=== PATIENT | female | born 1970 | race Caucasian/White ===

== ENCOUNTER 2017-01-21 09:50 | Emergency (ER) | payer MEDICAID ==
[2017-01-21 10:26] LABS: APPEARANCE,URINE CLEAR; BILIRUBIN,URINE NEGATIVE (NEGATIVE); GLUCOSE, URINE NEGATIVE (NEGATIVE); KETONES,URINE NEGATIVE (NEGATIVE); LEUKOCYTE ESTERASE,URINE NEGATIVE (NEGATIVE); NITRITE,URINE NEGATIVE (NEGATIVE); PROTEIN,URINE NEGATIVE (NEGATIVE); URINE SPECIFIC GRAVITY 1.006; UROBILINOGEN,URINE NEGATIVE mg/dL (<2.0)
--- NOTE | 2017-01-21 11:09 | ER Document Report ---
ED General - General Chief Complaint: Sore Throat Stated Complaint: URINARY SYMPTOMS Time Seen by Provider: 01/21/17 10:01 Mode of Arrival: Ambulatory Information source: Patient Notes: 36-year-old female presents to ED for urinary frequency burning urgency for the last 5 days. She states she also has a sore throat for the last 6 weeks. She states she has been drinking a lot of cranberry juice but the urgency and frequency continues. She has had a hysterectomy and a bilateral tubal ligation. TRAVEL OUTSIDE OF THE [place] IN LAST 30 DAYS: No - HPI Onset: Other - Urinary symptoms for 5 days sore throat for 6 week Onset/Duration: Gradual Quality of pain: Burning, Other - Throat Severity: Mild Pain Level: 2 Associated symptoms: Sore throat, Other - Urinary urgency frequency and burning Exacerbated by: Food Relieved by: Denies Similar symptoms previously: Yes Recently seen / treated by doctor: No - Related Data Allergies/Adverse Reactions: amoxicillin Allergy (Verified 01/21/17 09:54) azithromycin [From Zithromax] Allergy (Verified 01/21/17 09:54) cephalexin [From Keflex] Allergy (Verified 01/21/17 09:54) clindamycin Allergy (Verified 01/21/17 09:54) levofloxacin [From Levaquin] Allergy (Verified 01/21/17 09:54) Past Medical History - General Information source: Patient - Social History Smoking Status: Current Every Day Smoker Cigarette use (# per day): Yes - ppd Chew tobacco use (# tins/day): No Smoking Education Provided: Yes - Less than 2 minute Frequency of alcohol use: Heavy - qod Drug Abuse: None Lives with: Family Family History: Arthritis, CAD, CVA, DM, Thyroid Disfunction Patient has suicidal ideation: No Patient has homicidal ideation: No - Past Medical History Cardiac Medical History: Reports: Hx Hypertension Pulmonary Medical History: Reports: Hx COPD EENT Medical History: Reports: None Neurological Medical History: Reports: None Endocrine Medical History: Reports: Hx Hypothyroidism Renal/ Medical History: Reports: None Malignancy Medical History: Reports: None GI Medical History: Reports: None Musculoskeltal Medical History: Reports None Skin Medical History: Reports None Psychiatric Medical History: Reports: None Traumatic Medical History: Reports: None Infectious Medical History: Reports: None Past Surgical History: Reports: Hx Hysterectomy, Hx Myringotomy, Hx Tubal Ligation Review of Systems - Review of Systems Constitutional: No symptoms reported EENT: Nose discharge, Throat pain Cardiovascular: No symptoms reported Respiratory: No symptoms reported Gastrointestinal: No symptoms reported Genitourinary: Burning, Frequency, Urgency Female Genitourinary: No symptoms reported Musculoskeletal: No symptoms reported Skin: No symptoms reported Hematologic/Lymphatic: No symptoms reported Neurological/Psychological: No symptoms reported -: Yes All other systems reviewed and negative Physical Exam - Vital signs Vitals: Temp Pulse Resp BP Pulse Ox 98.7 F 121 H 16 197/107 H 99 01/21/17 09:55 01/21/17 09:55 01/21/17 09:55 01/21/17 09:55 01/21/17 09:55 Interpretation: Normal - General General appearance: Appears well, Alert - HEENT Head: Normocephalic, Atraumatic Eyes: Normal Pupils: PERRL Ears: Normal External canal: Normal Tympanic membrane: Normal Sinus: Normal Nasal: Swelling, Clear rhinorrhea Mouth/Lips: Normal Mucous membranes: Normal Pharynx: Post nasal drainage. No: Erythema, Exudate, Tonsillar hypertrophy Neck: Normal - Respiratory Respiratory status: No respiratory distress Chest status: Nontender Breath sounds: Normal Chest palpation: Normal - Cardiovascular Rhythm: Regular Heart sounds: Normal auscultation Murmur: No - Abdominal Inspection: Normal Distension: No distension Bowel sounds: Normal Tenderness: Nontender Organomegaly: No organomegaly - Back Back: Normal, Nontender - Extremities General upper extremity: Normal inspection, Nontender, Normal color, Normal ROM , Normal temperature General lower extremity: Normal inspection, Nontender, Normal color, Normal ROM , Normal temperature, Normal weight bearing. No: Judi's sign - Neurological Neuro grossly intact: Yes Cognition: Normal Orientation: AAOx4 Marija Coma Scale Eye Opening: Spontaneous Marija Coma Scale Verbal: Oriented [place] Coma Scale Motor: Obeys Commands [place] Coma Scale Total: 15 Speech: Normal Motor strength normal: LUE, RUE, LLE, RLE Sensory: Normal - Psychological Associated symptoms: Normal affect, Normal mood - Skin Skin Temperature: Warm Skin Moisture: Dry Skin Color: Normal Course - Vital Signs Vital signs: Temp Pulse Resp BP Pulse Ox 98.5 F 76 16 157/89 H 98 01/21/17 11:08 01/21/17 11:08 01/21/17 09:55 01/21/17 11:08 01/21/17 11:08 Discharge - Discharge Clinical Impression: Dysuria, Viral sore throat Condition: Stable Disposition: HOME, SELF-CARE Instructions: Family Physicians / Practices Additional Instructions: SORE THROAT: Sore throats may be caused by viruses, bacteria, or fungi. Most are due to a virus, and must get better on their own. Bacterial sore throats, particularly those due to "strep," need treatment with antibiotics. If an antibiotic is prescribed, be sure to take the medication for a full 10 days. Failure to take the antibiotic can result in complications such as rheumatic fever. Sometimes, an injection of antibiotics is given instead of pills or liquid. This single "shot" is equal in effectiveness to the oral medication. To relieve symptoms, take acetaminophen for pain. Sip clear liquids frequently, or eat popsicles or ice chips. Anesthetic sprays or lozenges may help. Make sure the air in the room is not too dry. Avoid using decongestants or antihistamines. Call the doctor if there is no improvement in two days, or if you have difficulty breathing, increasing throat pain, high fever, rash, or frequent vomiting. You have complained of frequency urgency and burning with urine, but your urine is negative for any kind of infection protein or sugar. Please reduce the amount of cranberry juice you are taking and increase your water intake. COUGH-SUPPRESSANT & EXPECTORANT MEDICATION: You are to use a cough medication as needed for relief of symptoms. This medicine is a combination of an expectorant (to make the mucous thinner and more easily "coughed up") and a cough suppressant (to reduce the frequency of coughing). The cough-suppressant medicine is related to narcotics. You may experience mild nausea and sleepiness. Some patients who are very sensitive to narcotics may have stomach pain from this medicine. Taking the medicine with food reduces these side effects. Do not drive or work with machinery until you know how this medicine affects you. The expectorant should have no side effects. Iodine-containing expectorants (such as organidin) should not be taken by persons with active thyroid disease unless approved by your doctor. Call the doctor if you develop shortness of breath, hives, rash, itching, lightheadedness, or severe nausea and vomiting. USE OF ACETAMINOPHEN (Tylenol): Acetaminophen may be taken for pain relief or fever control. It's much safer than aspirin, offering a wider range of "safe" dosages. It is safe during . Some brand names are Tylenol, Panadol, Datril, Anacin 3, Tempra, and Liquiprin. Acetaminophen can be repeated every four hours. The following are maximum recommended dosages: >89 pounds or adults 650 mg to 900 mg Acetaminophen can be repeated every four hours. Maximum dose not to exceed 4000 mg a day. SMOKING: If you smoke, you should stop smoking. The tar and chemicals in cigarette smoke are harmful. Smoking has been shown to cause: emphysema chronic bronchitis lung cancer mouth and throat cancer stomach and pancreas cancer premature aging defects In addition, smoking increases ear and lung infections in children of smokers. FOLLOW-UP CARE: If you have been referred to a physician for follow-up care, call the physician s office for an appointment as you were instructed or within the next two days. If you experience worsening or a significant change in your symptoms, notify the physician immediately or return to the Emergency Department at any time for re-evaluation. Forms: Elevated Blood Pressure, Smoking Cessation Education Referrals: LOCALMD,NO [Primary Care Provider] - Follow up as needed
[2017-01-21 11:10] VITALS: BP 157/89
== END 2017-01-21 11:29 | disposition home or self-care (01) ==
LOC: ER 09:50
DX: J02.8 Acute pharyngitis due to other specified organisms (principal); B97.89 Other viral agents as the cause of diseases classified elsewhere; R35.0 Frequency of micturition; J34.89 Other specified disorders of nose and nasal sinuses; R30.0 Dysuria; R39.15 Urgency of urination; I10 Essential (primary) hypertension; J44.9 Chronic obstructive pulmonary disease, unspecified; R09.82 Postnasal drip; F17.210 Nicotine dependence, cigarettes, uncomplicated; Z71.6 Tobacco abuse counseling; Z95.1 Presence of aortocoronary bypass graft; Z90.710 Acquired absence of both cervix and uterus; Z88.0 Allergy status to penicillin; Z88.1 Allergy status to other antibiotic agents
CPT/HCPCS: 81001; 87070; 87086; 87880; 99283

== ENCOUNTER 2019-07-04 16:47 | Observation (INO) | payer OTHER ==
[2019-07-04] MEDS ORDERED: LIDOCAINE 2% VISCOUS SOLN 15 ML UDCUP PO ONE (17:07)
[2019-07-04] MEDS ORDERED: ONDANSETRON 4 MG TAB.RAPDIS PO ONE (17:07)
[2019-07-04] MEDS ORDERED: MAG HYDROX/AL HYDROX/SIMETH SUSP 30 ML UDCUP PO ONE (17:07)
--- NOTE | 2019-07-04 17:08 | ER Document Report ---
ED Medical Screen (RME) - General Chief Complaint: Abdominal Pain Stated Complaint: ABDOMINAL PAIN/SWELLING Time Seen by Provider: 07/04/19 17:01 Primary Care Provider: WILLA CLAYTON [Primary Care Provider] - Follow up as needed Mode of Arrival: Ambulatory Information source: Patient Notes: Patient presents complaining of epigastric abdominal pain for the past 10 days. Patient states pain is worse after meals. Patient reports nausea and occasionally feeling dizzy. Patient denies any fever. Patient denies any chest discomfort. I have greeted and performed a rapid initial assessment of this patient. A comprehensive ED assessment and evaluation of the patient, analysis of test results and completion of the medical decision making process will be conducted by additional ED providers. TRAVEL OUTSIDE OF THE [place] IN LAST 30 DAYS: No - Related Data Allergies/Adverse Reactions: amoxicillin Allergy (Verified 07/04/19 16:53) azithromycin [From Zithromax] Allergy (Verified 07/04/19 16:53) cephalexin [From Keflex] Allergy (Verified 07/04/19 16:53) clindamycin Allergy (Verified 07/04/19 16:53) levofloxacin [From Levaquin] Allergy (Verified 07/04/19 16:53) Past Medical History - Past Medical History Cardiac Medical History: Reports: Hx Hypertension Pulmonary Medical History: Reports: Hx COPD Endocrine Medical History: Reports: Hx Hypothyroidism Renal/ Medical History: Denies: Hx Peritoneal Dialysis Past Surgical History: Reports: Hx Hysterectomy, Hx Myringotomy, Hx Tubal Ligation Physical Exam - Vital signs Vitals: Temp Pulse Resp BP Pulse Ox 99.5 F 92 18 178/103 H 100 07/04/19 16:53 07/04/19 16:53 07/04/19 16:53 07/04/19 16:53 07/04/19 16:53 - Abdominal Tenderness: Tender - Epigastric tenderness Course - Vital Signs Vital signs: Temp Pulse Resp BP Pulse Ox 99.5 F 92 18 178/103 H 100 07/04/19 16:53 07/04/19 16:53 07/04/19 16:53 07/04/19 16:53 07/04/19 16:53 Doctor's Discharge - Discharge Referrals: WILLA CLAYTON [Primary Care Provider] - Follow up as needed
[2019-07-04 17:40] LABS: ABSOLUTE EOSINOPHILS # (AUTO) 0.3 10^3/uL (0.0-0.6); ABSOLUTE LYMPHOCYTES (AUTO) 4.5 10^3/uL (0.5-4.7); ABSOLUTE MONOCYTES (AUTO) 0.9 10^3/uL (0.1-1.4); ABSOLUTE NEUT (AUTO) 6.9 10^3/uL (1.7-8.2); BASOPHILS % (AUTO) 0.3 % (0-2); EOSINOPHILS % (AUTO) 2.5 % (0-6); HEMATOCRIT 44.5 % (36.0-47.0); HEMOGLOBIN 15.3 g/dL (12.0-15.5); LYMPHOCYTES % (AUTO) 35.6 % (13-45); MEAN CORPUSCULAR HEMOGLOBIN 32.7 pg (27.0-33.4); MEAN CORPUSCULAR HGB CONC 34.3 g/dL (32.0-36.0); MEAN CORPUSCULAR VOLUME 95 fl (80-97); MONOCYTES % (AUTO) 7.1 % (3-13); PLATELET COUNT 364 10^3/uL (150-450); RED BLOOD COUNT 4.67 10^6/uL (3.72-5.28); RED CELL DISTRIBUTION WIDTH 13.3 % (11.5-14.0); SEGMENTED NEUTROPHILS % (AUTO) 54.5 % (42-78); TOTAL CELLS COUNTED % (AUTO) 100 %; WHITE BLOOD COUNT 12.7 10^3/uL (4.0-10.5)
[2019-07-04 18:04] LABS: ALBUMIN 4.5 g/dL (3.5-5.0); ALKALINE PHOSPHATASE 86 U/L (38-126); ANION GAP 10 (5-19); ASPARTATE AMINO TRANSFERASE 22 U/L (14-36); BILIRUBIN,DIRECT 0.2 mg/dL (0.0-0.4); BILIRUBIN,TOTAL 0.3 mg/dL (0.2-1.3); BLOOD UREA NITROGEN 10 mg/dL (7-20); CALCIUM 9.4 mg/dL (8.4-10.2); CARBON DIOXIDE 19 mmol/L (22-30); CHLORIDE 111 mmol/L (98-107); GLUCOSE 101 mg/dL (75-110); TOTAL PROTEIN 7.4 g/dL (6.3-8.2)
--- NOTE | 2019-07-04 18:31 | RADIOLOGY REPORT (SQ) ---
EXAM DESCRIPTION: U/S ABDOMEN LIMITED W/O DOP COMPLETED DATE/TIME: 07/04/2019 6:06 pm REASON FOR STUDY: upper abd pain COMPARISON: None. TECHNIQUE: Dynamic and static grayscale images acquired of the abdomen and recorded on PACS. Additio nal selected color Doppler and spectral images recorded. LIMITATIONS: Limited visualization. Poor acoustical window FINDINGS: PANCREAS: Limited visualization. no masses seen LIVER: Normal size Echo texture normal. No focal masses. LIVER VASCULATURE: Normal directional flow of the main portal vein and hepatic veins. GALLBLADDER: Cholelithiasis. Normal wall thickness. No pericholecystic fluid. ULTRASOUND-DETECTED RAMIREZ'S SIGN: Positive. INTRAHEPATIC DUCTS AND COMMON DUCT: CBD and intrahepatic ducts normal caliber. No filling defects. INFERIOR VENA CAVA: Normal flow. AORTA: No aneurysm. RIGHT KIDNEY: Normal size. Normal echogenicity. No solid or suspicious masses. No hydronephros is. No calcifications. PERITONEAL AND RIGHT PLEURAL SPACE: No ascites or effusions. OTHER: No other significant findings. IMPRESSION: Cholelithiasis. Possible cholecystitis. TECHNICAL DOCUMENTATION: JOB ID: [id number]- All Rights Reserved Reading location - IP/workstation name: [email or web address]
[2019-07-04] MEDS ORDERED: MORPHINE SULFATE 10 MG/ML INJ IV ONE (20:32)
--- NOTE | 2019-07-04 20:32 | ER Document Report ---
ED General - General Chief Complaint: Abdominal Pain Stated Complaint: ABDOMINAL PAIN/SWELLING Time Seen by Provider: 07/04/19 17:01 Mode of Arrival: Ambulatory TRAVEL OUTSIDE OF THE [place] IN LAST 30 DAYS: No - HPI Onset: Other - over the last week Onset/Duration: Gradual Quality of pain: Cramping, Sharp Severity: Severe Pain Level: 5 Associated symptoms: Nausea, Other - abdominal swelling Exacerbated by: Food Relieved by: Other - not eating Similar symptoms previously: No Recently seen / treated by doctor: No Notes: 48 year old female with a history of COPD, HTN, Hypothyroidism here for 1 week of epigastric and RUQ abdominal pain which is made more with eating. The patient says the pain is so bad today she has been unable to eat or drink more then a couple sips of clear liquids. The patient says she feels nauseated with the pain and is is sharp in nature. The patient has never had pain like this before. The patient says this pain is worse to then child . - Related Data Allergies/Adverse Reactions: amoxicillin Allergy (Verified 07/04/19 16:53) azithromycin [From Zithromax] Allergy (Verified 07/04/19 16:53) cephalexin [From Keflex] Allergy (Verified 07/04/19 16:53) clindamycin Allergy (Verified 07/04/19 16:53) levofloxacin [From Levaquin] Allergy (Verified 07/04/19 16:53) Past Medical History - General Information source: Patient - Social History Smoking Status: Current Every Day Smoker Frequency of alcohol use: Occasional Drug Abuse: None Lives with: Family Family History: Arthritis, CAD, CVA, DM, Thyroid Disfunction Patient has suicidal ideation: No Patient has homicidal ideation: No - Past Medical History Cardiac Medical History: Reports: Hx Hypertension Pulmonary Medical History: Reports: Hx COPD Endocrine Medical History: Reports: Hx Hypothyroidism Renal/ Medical History: Denies: Hx Peritoneal Dialysis Past Surgical History: Reports: Hx Hysterectomy, Hx Myringotomy, Hx Tubal Ligation Review of Systems - Review of Systems Constitutional: Other - decreased PO intake EENT: No symptoms reported Cardiovascular: No symptoms reported Respiratory: No symptoms reported Gastrointestinal: Abdomen distended, Abdominal pain, Nausea Genitourinary: No symptoms reported Female Genitourinary: No symptoms reported Musculoskeletal: No symptoms reported Skin: No symptoms reported Hematologic/Lymphatic: No symptoms reported Neurological/Psychological: No symptoms reported Physical Exam - Vital signs Vitals: Temp Pulse Resp BP Pulse Ox 99.5 F 92 18 178/103 H 100 07/04/19 16:53 07/04/19 16:53 07/04/19 16:53 07/04/19 16:53 07/04/19 16:53 - Notes Notes: GENERAL: Well-appearing, well-nourished and in no acute distress. HEAD: Atraumatic, normocephalic. EYES: Pupils equal round and reactive to light, extraocular movements intact, sclera anicteric, conjunctiva are normal. ENT: TMs normal, nares patent, oropharynx clear without exudates. Moist mucous membranes. NECK: Normal range of motion, supple without lymphadenopathy or JVD. LUNGS: Breath sounds clear to auscultation bilaterally and equal. No wheezes rales or rhonchi. HEART: Regular rate and rhythm without murmurs, rubs or gallops. ABDOMEN: Soft, moderate to severe tenderness in epigastric and RUQ area, normoactive bowel sounds. No guarding, no rebound. No masses appreciated. EXTREMITIES: Normal range of motion, no pitting or edema. No clubbing or cyanosis. NEUROLOGICAL: Cranial nerves II through XII grossly intact. Normal speech, normal gait. PSYCH: Normal mood, normal affect. SKIN: Warm, Dry, normal turgor, no rashes or lesions noted. Course - Re-evaluation Re-evalutation: 07/04/19 20:33 The patient has gallstones on US and questionable cholecystitis. Patient has elevated WBC and low grade temp but a normal CMP. General Surgery [facility] consulted and will see the patient in the ER. 07/04/19 23:16 General Surgeon saw the patient and admitted her to his service. Will defer antibiotic choice to the Surgeon. - Vital Signs Vital signs: Temp Pulse Resp BP Pulse Ox 99.5 F 92 18 178/103 H 100 07/04/19 16:53 07/04/19 16:53 07/04/19 16:53 07/04/19 16:53 07/04/19 16:53 - Laboratory Result Diagrams: 07/04/19 17:10 07/04/19 17:10 Laboratory results interpreted by me: 07/04/19 07/04/19 17:10 17:10 WBC 12.7 H Chloride 111 H Carbon Dioxide 19 L Discharge - Discharge Clinical Impression: Cholecystitis Condition: Stable Disposition: ADMITTED INPATIENT Admitting Provider: Surgicalist Unit Admitted: Surgical Floor
[2019-07-04] MEDS ORDERED: ONDANSETRON HCL INJ/PF 4 MG/2 ML SDV IV PRN (22:53)
--- NOTE | 2019-07-04 22:53 | PDOC H&P ---
History of Present Illness Admission Date/PCP: NO LOCALMD Patient complains of: Abdominal bloating and epigastric pain History of Present Illness: ROYAL CAT is a 48 year old female, obese, with a history of hypothyroidism, migraine headache, COPD, past pneumonia about 5 years ago, transvaginal hysterectomy who presents to the emergency room with 1 week history of abdominal bloating and epigastric pain. An ultrasound of the abdomen was done revealing a cholelithiasis with a normal gallbladder wall thickness and normal common bile duct. Her blood work is within normal limits except for slight elevated blood pressure count of 12.7 her liver profile is within normal limits. Past Medical History Cardiac Medical History: Reports: Hypertension Pulmonary Medical History: Reports: Chronic Obstructive Pulmonary Disease (COPD) Endocrine Medical History: Reports: Hypothyroidism Past Surgical History Past Surgical History: Reports: Hysterectomy, Tubal Ligation Social History Lives with: Family Smoking Status: Current Every Day Smoker Family History Family History: Arthritis, CAD, CVA, DM, Thyroid Disfunction Parental Family History Reviewed: No Children Family History Reviewed: No Sibling(s) Family History Reviewed.: No Medication/Allergy Allergies/Adverse Reactions: amoxicillin Allergy (Verified 07/04/19 16:53) azithromycin [From Zithromax] Allergy (Verified 07/04/19 16:53) cephalexin [From Keflex] Allergy (Verified 07/04/19 16:53) clindamycin Allergy (Verified 07/04/19 16:53) levofloxacin [From Levaquin] Allergy (Verified 07/04/19 16:53) Physical Exam Vital Signs: Temp Pulse Resp BP Pulse Ox 99.5 F 92 18 178/103 H 100 07/04/19 16:53 07/04/19 16:53 07/04/19 16:53 07/04/19 16:53 07/04/19 16:53 Intake & Output 07/03/19 07/04/19 07/05/19 06:59 06:59 06:59 Weight 75.5 kg General appearance: PRESENT: no acute distress, obese Eye exam: PRESENT: EOMI Mouth exam: PRESENT: moist, neck supple Teeth exam: PRESENT: poor dentation Neck exam: PRESENT: full ROM Respiratory exam: PRESENT: clear to auscultation andi Cardiovascular exam: PRESENT: RRR GI/Abdominal exam: PRESENT: distended, soft, tenderness - In the right upper quadrant and epigastrium with guarding Extremities exam: PRESENT: full ROM Musculoskeletal exam: PRESENT: full ROM Neurological exam: PRESENT: alert, awake Psychiatric exam: PRESENT: appropriate affect Results Laboratory Results: 07/04/19 17:10 07/04/19 17:10 07/04/19 07/04/19 17:10 17:10 WBC 12.7 H RBC 4.67 Hgb 15.3 Hct 44.5 MCV 95 MCH 32.7 MCHC 34.3 RDW 13.3 Plt Count 364 Seg Neutrophils % 54.5 Sodium 139.9 Potassium 4.0 Chloride 111 H Carbon Dioxide 19 L Anion Gap 10 BUN 10 Creatinine 0.86 Est GFR ( Amer) > 60 Glucose 101 Calcium 9.4 Total Bilirubin 0.3 AST 22 Alkaline Phosphatase 86 Total Protein 7.4 Albumin 4.5 Lipase 86.5 Impressions: Abdomen Ultrasound 07/04/19 17:12 IMPRESSION: Cholelithiasis. Possible cholecystitis. Assessment & Plan - Diagnosis (1) Symptomatic cholelithiasis Is this a current diagnosis for this admission?: Yes - Plan Summary Plan Summary: Assessment: Right upper quadrant and epigastric pain for a week Ultrasound gallbladder significant for cholelithiasis and normal gallbladder wall clearance Blood work within normal limits except for slight with a white blood cell count of 12.7 Exam significant for Yanez sign Plan: Admit N.p.o. after midnight IV fluids Repeat blood work in the morning Plan laparoscopic cholecystectomy possible open, possible cholangiogram. The procedure, risks, benefits, complications, including bleeding from the liver and injury to the common bile duct which may require transfer to tertiary center have been discussed with the patient, she understands all the above, her questions were answered to her satisfaction, and she decides to proceed
[2019-07-04] MEDS ORDERED: FAMOTIDINE INJ/PF 20 MG/2 ML SDV IV SCH (23:10)
[2019-07-05] MEDS: MORPHINE SULFATE 10 MG/ML INJ IV PRN ×5 (00:59→22:54)
[2019-07-05] MEDS: NICOTINE 21 MG/24 HR PATCH.TD24 TD PRN ×2 (01:00→23:03)
[2019-07-05] MEDS: NORMAL SALINE 1000 ML 1,000 ML IV PRN ×2 (01:01→11:16)
--- NOTE | 2019-07-05 01:01 | EKG REPORT ---
SEVERITY:- BORDERLINE ECG - SINUS RHYTHM BORDERLINE T ABNORMALITIES, INFERIOR LEADS : Confirmed by: Vi Barnhart MD 05-Jul-2019 00:59:51
--- NOTE | 2019-07-05 01:01 | EKG REPORT ---
SEVERITY:- BORDERLINE ECG - SINUS RHYTHM PROBABLE LEFT ATRIAL ABNORMALITY BORDERLINE LEFT AXIS DEVIATION BORDERLINE T WAVE ABNORMALITIES : Confirmed by: Vi Barnhart MD 05-Jul-2019 00:59:54
[2019-07-05] MEDS: ACETAMINOPHEN 1,000 MG/100 ML RTUPB IV SCH ×4 (01:30→22:34)
[2019-07-05] MEDS ORDERED: INFLUENZA QUAD (6MOS+) 2019-20 VAC 0.5 ML SYR IM ONE (02:31)
[2019-07-05 06:08] LABS: ABSOLUTE BASOPHILS # (AUTO) 0.1 10^3/uL (0.0-0.2); ABSOLUTE EOSINOPHILS # (AUTO) 0.4 10^3/uL (0.0-0.6); ABSOLUTE LYMPHOCYTES (AUTO) 4.7 10^3/uL (0.5-4.7); ABSOLUTE MONOCYTES (AUTO) 0.7 10^3/uL (0.1-1.4); ABSOLUTE NEUT (AUTO) 4.6 10^3/uL (1.7-8.2); BASOPHILS % (AUTO) 0.6 % (0-2); EOSINOPHILS % (AUTO) 3.5 % (0-6); HEMATOCRIT 41.5 % (36.0-47.0); HEMOGLOBIN 14.6 g/dL (12.0-15.5); LYMPHOCYTES % (AUTO) 45.1 % (13-45); MEAN CORPUSCULAR HEMOGLOBIN 33.5 pg (27.0-33.4); MEAN CORPUSCULAR HGB CONC 35.1 g/dL (32.0-36.0); MEAN CORPUSCULAR VOLUME 96 fl (80-97); MONOCYTES % (AUTO) 6.9 % (3-13); PLATELET COUNT 329 10^3/uL (150-450); RED BLOOD COUNT 4.35 10^6/uL (3.72-5.28); RED CELL DISTRIBUTION WIDTH 13.8 % (11.5-14.0); SEGMENTED NEUTROPHILS % (AUTO) 43.9 % (42-78); TOTAL CELLS COUNTED % (AUTO) 100 %; WHITE BLOOD COUNT 10.4 10^3/uL (4.0-10.5)
[2019-07-05 06:23] LABS: ALBUMIN 3.6 g/dL (3.5-5.0); ALKALINE PHOSPHATASE 67 U/L (38-126); ANION GAP 7 (5-19); ASPARTATE AMINO TRANSFERASE 20 U/L (14-36); BILIRUBIN,DIRECT 0.2 mg/dL (0.0-0.4); BILIRUBIN,TOTAL 0.4 mg/dL (0.2-1.3); BLOOD UREA NITROGEN 8 mg/dL (7-20); CARBON DIOXIDE 22 mmol/L (22-30); CHLORIDE 113 mmol/L (98-107); GLUCOSE 91 mg/dL (75-110); POTASSIUM 3.9 mmol/L (3.6-5.0); TOTAL PROTEIN 6.3 g/dL (6.3-8.2)
--- NOTE | 2019-07-05 08:24 | PDOC PROGRESS REPORT ---
Subjective Progress Note for:: 07/05/19 Subjective:: patient still complaining of right upper quadrant pain Reason For Visit: SYMPTOMATIC CHOLELITHIASIS Physical Exam Vital Signs: Temp Pulse Resp BP Pulse Ox 98.1 F 58 L 17 109/65 96 07/05/19 06:00 07/05/19 06:00 07/05/19 06:00 07/05/19 06:00 07/05/19 06:00 Intake & Output 07/04/19 07/05/19 07/06/19 06:59 06:59 06:59 Intake Total 200 Balance 200 Weight 76 kg General appearance: PRESENT: no acute distress GI/Abdominal exam: PRESENT: soft, tenderness - Right upper quadrant Results Laboratory Results: 07/05/19 05:54 07/05/19 05:54 07/04/19 07/04/19 07/05/19 17:10 17:10 05:54 WBC 12.7 H 10.4 RBC 4.67 4.35 Hgb 15.3 14.6 Hct 44.5 41.5 MCV 95 96 MCH 32.7 33.5 H MCHC 34.3 35.1 RDW 13.3 13.8 Plt Count 364 329 Seg Neutrophils % 54.5 43.9 Sodium 139.9 Potassium 4.0 Chloride 111 H Carbon Dioxide 19 L Anion Gap 10 BUN 10 Creatinine 0.86 Est GFR ( Amer) > 60 Glucose 101 Calcium 9.4 Total Bilirubin 0.3 AST 22 Alkaline Phosphatase 86 Total Protein 7.4 Albumin 4.5 Lipase 86.5 07/05/19 05:54 WBC RBC Hgb Hct MCV MCH MCHC RDW Plt Count Seg Neutrophils % Sodium 141.6 Potassium 3.9 Chloride 113 H Carbon Dioxide 22 Anion Gap 7 BUN 8 Creatinine 0.89 Est GFR ( Amer) > 60 Glucose 91 Calcium 9.0 Total Bilirubin 0.4 AST 20 Alkaline Phosphatase 67 Total Protein 6.3 Albumin 3.6 Lipase Impressions: Abdomen Ultrasound 07/04/19 17:12 IMPRESSION: Cholelithiasis. Possible cholecystitis. Assessment & Plan - Diagnosis (1) Symptomatic cholelithiasis Is this a current diagnosis for this admission?: Yes - Time Time Spent with patient: 15-24 minutes - Plan Summary Plan Summary: Assessment: Symptomatic cholelithiasis Blood work within normal limits Plan: Laparoscopically cholecystectomy, possible open, possible cholangiogram today Procedure, risks, benefits, complications, including possibility of bleeding from the liver and/or injury to bile ducts explained to the patient, she understands all the above she decides to proceed
[2019-07-05] MEDS ORDERED: ROCURONIUM BROMIDE INJ 50 MG/5 ML VIAL IV ONE (08:51)
[2019-07-05] MEDS ORDERED: SULFAMETHOX/TRIMETH 800-160 MG/10 ML VIAL IV ONE (09:00)
[2019-07-05] MEDS ORDERED: METRONIDAZOLE 500 MG/NS RTU 500 MG/100 ML RTUPB IV ONE (09:00)
[2019-07-05] MEDS ORDERED: ONDANSETRON HCL INJ/PF 4 MG/2 ML SDV IV PRN ×3 (09:30→19:23)
[2019-07-05] MEDS: FAMOTIDINE INJ/PF 20 MG/2 ML SDV IV SCH ×3 (10:13→22:53)
[2019-07-05] MEDS ORDERED: METRONIDAZOLE 500 MG/NS RTU 500 MG/100 ML RTUPB IV PRN (13:00)
[2019-07-05] MEDS ORDERED: SULFAMETHOXAZOLE/TRIMETHOPRIM 320 MG in DEXTROSE 5%-WATER 500 ML IV PRN (13:00)
[2019-07-05] MEDS ORDERED: BUPIVACAINE HCL 0.5 % INJ/PF 30 ML SDV ONE (16:09)
[2019-07-05] MEDS ORDERED: MIDAZOLAM 2 MG/2 ML INJ ONE (16:42)
[2019-07-05] MEDS ORDERED: PROPOFOL INJ 200 MG/20 ML VIAL IV ONE (16:42)
[2019-07-05] MEDS ORDERED: FENTANYL CITRATE INJ/PF 250 MCG/5 ML AMPULE ONE (16:42)
[2019-07-05] MEDS ORDERED: BUPIVACAINE HCL 0.5 % INJ/PF 30 ML SDV INJ ONE (17:48)
[2019-07-05] MEDS ORDERED: PROMETHAZINE HCL INJ 25 MG/1 ML VIAL IV PRN (18:14)
[2019-07-05] MEDS ORDERED: DIPHENHYDRAMINE HCL 50 MG/ML VIAL IV PRN (18:14)
[2019-07-05] MEDS ORDERED: MORPHINE SULFATE 10 MG/ML INJ IV PRN ×2 (18:14→19:23)
[2019-07-05] MEDS ORDERED: FENTANYL CITRATE INJ/PF 100 MCG/2 ML AMPUL IV PRN ×2 (18:14)
[2019-07-05] MEDS ORDERED: EPHEDRINE SULFATE INJ 50 MG/1 ML AMPULE ONE (18:14)
[2019-07-05] MEDS ORDERED: MEPERIDINE HCL/PF INJ 25 MG/1 ML DISP.SYRIN IV PRN (18:14)
--- NOTE | 2019-07-05 19:22 | Operative Report ---
Nonrecallable Operative Report DATE OF SURGERY: 07/05/19 PREOPERATIVE DIAGNOSIS: Symptomatic cholelithiasis POSTOPERATIVE DIAGNOSIS: Same OPERATION: Laparoscopic cholecystectomy SURGEON: JESÚS DAS ANESTHESIA: Local - 20 mL 1% lidocaine TISSUE REMOVED OR ALTERED: Gallbladder COMPLICATIONS: None ESTIMATED BLOOD LOSS: 10 mL INTRAOPERATIVE FINDINGS: Cystic duct and cystic artery were clear identified dissected and divided PROCEDURE: The procedure was done in the operating room. The patient was placed in a supine position, general anesthesia induced by endotracheal intubation the abdomen was prepped and draped in usual fashion. An incision was made just above the umbilicus with a #15 blade, the skin was tented with towel clips and a 5 mm port with Optiview adapter and scope was inserted through the abdominal wall into the peritoneal cavity. CO2 pneumoperitoneum was obtained, under direct visualization a 12 mm port was inserted in the epigastrium and to 5 mm ports were placed in the right lateral quadrant of the abdomen under direct visualization. The patient was placed in steep reverse Trendelenburg position, the right side was elevated, the gallbladder fundus was grasped and the gallbladder was elevated and retroflexed; the cystic neck was identified, grasped, and pulled anterior to the patient's right with exposure of the triangle of [place]. The critical view of safety was obtained by dividing the peritoneal attachments of the gallbladder body both medially and laterally with a hook cautery. When this was accomplished, the hook cautery dissection was continued toward the cystic neck. An opening was then obtained posterior to the cystic duct which was enlarged with a peanut dissector and with a right angle dissector. Once the critical view of safety was obtained, the cystic duct was carefully dissected with a hook cautery and a space was developed between the cystic duct and cystic artery with a right angle dissector. Both were then double clipped proximally and distally and divided with scissors. The gallbladder was dissected from the liver bed using hook cautery at high settings, and extracted from the peritoneal cavity with an Endobag through the epigastric port. The pneumoperitoneum was then re-established, the gallbladder fossa was examined and found to be free from blood or bile staining. The right upper quadrant was then irrigated with normal saline until clear due to the spillage of a small amount of bile during the dissection of the gallbladder. The epigastric fascial defect was closed with a [id number] 0 Vicryl suture, placed with a fascia closure device under direct visualization, and left untied. All instruments were removed, the CO2 pneumoperitoneum was released, and all the ports were removed. The epigastric fascial defect was closed with the previously placed [id number] 0 Vicryl suture, all skin incisions were closed with a 4-0 PDS running subcuticular suture, and Dermabond was applied. The patient tolerated the procedure well, was extubated, and transferred to the recovery room in satisfactory conditions.
[2019-07-05] MEDS ORDERED: NORMAL SALINE 1000 ML 1,000 ML IV PRN (19:23)
[2019-07-05] MEDS ORDERED: PROMETHAZINE HCL INJ 25 MG/1 ML VIAL ONE (19:24)
[2019-07-05] MEDS ORDERED: FENTANYL CITRATE INJ/PF 100 MCG/2 ML AMPUL ONE (19:24)
[2019-07-05] MEDS ORDERED: KETOROLAC TROMETHAMINE INJ/PF 30 MG/1 ML SDV ONE (19:24)
[2019-07-05] MEDS: FENTANYL CITRATE INJ/PF 100 MCG/2 ML AMPUL IV PRN ×2 (19:25→19:40)
[2019-07-05] MEDS ORDERED: KETOROLAC TROMETHAMINE INJ/PF 30 MG/1 ML SDV IV ONE (19:35)
[2019-07-05] MEDS: METRONIDAZOLE 500 MG/NS RTU 500 MG/100 ML RTUPB IV SCH (22:53)
[2019-07-06] MEDS: ACETAMINOPHEN 1,000 MG/100 ML RTUPB IV SCH ×2 (00:20→05:45)
[2019-07-06] MEDS: KETOROLAC TROMETHAMINE INJ/PF 30 MG/1 ML SDV IV SCH ×2 (00:20→06:01)
[2019-07-06] MEDS: METRONIDAZOLE 500 MG/NS RTU 500 MG/100 ML RTUPB IV SCH (05:00)
[2019-07-06] MEDS ORDERED: SULFAMETHOXAZOLE/TRIMETHOPRIM 320 MG in DEXTROSE 5%-WATER 500 ML IV SCH (05:00)
[2019-07-06] MEDS: ENOXAPARIN SODIUM INJ 40 MG/0.4 ML DISP.SYRIN SUBCUT SCH ×2 (06:01→09:06)
[2019-07-06 06:25] LABS: ABSOLUTE EOSINOPHILS # (AUTO) 0.1 10^3/uL (0.0-0.6); ABSOLUTE LYMPHOCYTES (AUTO) 2.7 10^3/uL (0.5-4.7); ABSOLUTE MONOCYTES (AUTO) 0.8 10^3/uL (0.1-1.4); ABSOLUTE NEUT (AUTO) 7.4 10^3/uL (1.7-8.2); BASOPHILS % (AUTO) 0.3 % (0-2); EOSINOPHILS % (AUTO) 0.5 % (0-6); HEMATOCRIT 38.5 % (36.0-47.0); HEMOGLOBIN 13.4 g/dL (12.0-15.5); LYMPHOCYTES % (AUTO) 24.9 % (13-45); MEAN CORPUSCULAR HEMOGLOBIN 33.5 pg (27.0-33.4); MEAN CORPUSCULAR HGB CONC 34.9 g/dL (32.0-36.0); MEAN CORPUSCULAR VOLUME 96 fl (80-97); MONOCYTES % (AUTO) 7.1 % (3-13); PLATELET COUNT 312 10^3/uL (150-450); RED CELL DISTRIBUTION WIDTH 13.3 % (11.5-14.0); SEGMENTED NEUTROPHILS % (AUTO) 67.2 % (42-78); TOTAL CELLS COUNTED % (AUTO) 100 %
[2019-07-06 06:52] LABS: ALBUMIN 3.2 g/dL (3.5-5.0); ALKALINE PHOSPHATASE 65 U/L (38-126); ANION GAP 8 (5-19); ASPARTATE AMINO TRANSFERASE 57 U/L (14-36); BILIRUBIN,DIRECT 0.3 mg/dL (0.0-0.4); BILIRUBIN,TOTAL 0.3 mg/dL (0.2-1.3); BLOOD UREA NITROGEN 6 mg/dL (7-20); CALCIUM 8.8 mg/dL (8.4-10.2); CARBON DIOXIDE 18 mmol/L (22-30); CHLORIDE 114 mmol/L (98-107); GLUCOSE 89 mg/dL (75-110); POTASSIUM 3.9 mmol/L (3.6-5.0); TOTAL PROTEIN 5.8 g/dL (6.3-8.2)
--- NOTE | 2019-07-06 08:50 | PDOC DISCHARGE SUMMARY ---
General - Admit/Disc Date/PCP Admission Date/Primary Care Provider: 07/04/19 23:12 Symptomatic cholelithiasis Discharge Date: 07/06/19 - Discharge Diagnosis Final Diagnosis: Symptomatic cholelithiasis - Assessment Summary: Patient was admitted on the day of admission with right upper quadrant pain and nausea and vomiting diagnosis of symptomatic cholelithiasis was made in the [facility] room and she was taken to the operating for a laparoscopic cholecystectomy. Postoperatively she was watched overnight following morning she was doing well tolerating a full liquid diet wounds were clean and dry her pain was managed well and she is ready for discharge home today. Be followed up in surgical clinic in 7 to 10 days. - Additional Information Resuscitation Status: Full Code Discharge Diet: As Tolerated Discharge Activity: Activity As Tolerated, No Lifting Over 10 Pounds - She needs a follow-up in surgery clinic in 7 to 10 days Referrals: Out of State, PCP [Other] Home Medications: Levothyroxine Sodium [Synthroid] 175 mcg PO Q6AM 07/05/19 Topiramate [Topamax 100 Mg Tablet] 200 mg PO DAILY 07/05/19 History of Present Illiness History of Present Illness: ROYAL CAT is a 48 year old female Physical Exam Vital Signs: Temp Pulse Resp BP Pulse Ox 98.8 F 69 14 156/84 H 98 07/06/19 08:12 07/06/19 08:12 07/06/19 08:12 07/06/19 08:12 07/06/19 08:12 Intake & Output 07/05/19 07/06/19 07/07/19 06:59 06:59 06:59 Intake Total 200 3300 200 Balance 200 3300 200 Weight 76 kg 82 kg Results Laboratory Results: WBC 11.0 10^3/uL (4.0-10.5) H 07/06/19 05:57 RBC 4.00 10^6/uL (3.72-5.28) 07/06/19 05:57 Hgb 13.4 g/dL (12.0-15.5) 07/06/19 05:57 Hct 38.5 % (36.0-47.0) 07/06/19 05:57 MCV 96 fl (80-97) 07/06/19 05:57 MCH 33.5 pg (27.0-33.4) H 07/06/19 05:57 MCHC 34.9 g/dL (32.0-36.0) 07/06/19 05:57 RDW 13.3 % (11.5-14.0) 07/06/19 05:57 Plt Count 312 10^3/uL (150-450) 07/06/19 05:57 Lymph % (Auto) 24.9 % (13-45) 07/06/19 05:57 [place] % (Auto) 7.1 % (3-13) 07/06/19 05:57 Eos % (Auto) 0.5 % (0-6) 07/06/19 05:57 Baso % (Auto) 0.3 % (0-2) 07/06/19 05:57 Absolute Neuts (auto) 7.4 10^3/uL (1.7-8.2) 07/06/19 05:57 Absolute Lymphs (auto) 2.7 10^3/uL (0.5-4.7) 07/06/19 05:57 Absolute Monos (auto) 0.8 10^3/uL (0.1-1.4) 07/06/19 05:57 Absolute Eos (auto) 0.1 10^3/uL (0.0-0.6) 07/06/19 05:57 Absolute Basos (auto) 0.0 10^3/uL (0.0-0.2) 07/06/19 05:57 Seg Neutrophils % 67.2 % (42-78) 07/06/19 05:57 Sodium 140.2 mmol/L (137-145) 07/06/19 05:57 Potassium 3.9 mmol/L (3.6-5.0) 07/06/19 05:57 Chloride 114 mmol/L (98-107) H 07/06/19 05:57 Carbon Dioxide 18 mmol/L (22-30) L 07/06/19 05:57 Anion Gap 8 (5-19) 07/06/19 05:57 BUN 6 mg/dL (7-20) L 07/06/19 05:57 Creatinine 0.96 mg/dL (0.52-1.25) 07/06/19 05:57 Est GFR ( Amer) > 60 (>60) 07/06/19 05:57 Est GFR (MDRD) Non-Af > 60 (>60) 07/06/19 05:57 Glucose 89 mg/dL (75-110) 07/06/19 05:57 Calcium 8.8 mg/dL (8.4-10.2) 07/06/19 05:57 Total Bilirubin 0.3 mg/dL (0.2-1.3) 07/06/19 05:57 Direct Bilirubin 0.3 mg/dL (0.0-0.4) 07/06/19 05:57 Neonat Total Bilirubin Not Reportable 07/06/19 05:57 Neonat Direct Bilirubin Not Reportable 07/06/19 05:57 Neonat Indirect Bili Not Reportable 07/06/19 05:57 AST 57 U/L (14-36) H 07/06/19 05:57 ALT 47 U/L (<35) 07/06/19 05:57 Alkaline Phosphatase 65 U/L (38-126) 07/06/19 05:57 Total Protein 5.8 g/dL (6.3-8.2) L 07/06/19 05:57 Albumin 3.2 g/dL (3.5-5.0) L 07/06/19 05:57 Lipase 86.5 U/L (23-300) 07/04/19 17:10 Impressions: Abdomen Ultrasound 07/04/19 17:12 IMPRESSION: Cholelithiasis. Possible cholecystitis.
[2019-07-06] MEDS: FAMOTIDINE INJ/PF 20 MG/2 ML SDV IV SCH ×2 (09:06)
[2019-07-06 10:36] VITALS: BP 124/74
== END 2019-07-06 11:00 | disposition home or self-care (01) ==
LOC: ER 16:47 → EH 23:12 → 5 07-05 01:15
PROVIDERS: ATTEND Surgery
DX: K80.10 Calculus of gallbladder with chronic cholecystitis without obstruction (principal); E66.9 Obesity, unspecified; E03.9 Hypothyroidism, unspecified; F17.200 Nicotine dependence, unspecified, uncomplicated; Z79.899 Other long term (current) drug therapy; Z98.51 Tubal ligation status; Z90.710 Acquired absence of both cervix and uterus; Z23 Encounter for immunization
CPT/HCPCS: 93005 ×2; 99285; 96374; 96375; 36415 ×3; 83690; 85025 ×3; 80053 ×3; 88304 ×2; 76705; 90686; 93010; 00790; 47562; G0378 ×4; L1830; J2250; J3490 ×8; S0119; J3010 ×2; J1885 ×2; J2270 ×2; J2550; J2405; J7060 ×2; J7030; J2704; S0028; J0131 ×2; 790